=== PATIENT | male | born 1980 | race Caucasian/White ===

== ENCOUNTER 2016-06-03 22:43 | Emergency (ER) | payer OTHER ==
[2016-06-03 22:50] VITALS: BP 112/73; PULSE 80; TEMP 98.1; BMI 27.2
[2016-06-03] MEDS ORDERED: AZITHROMYCIN 250 MG TABLET (FP) PO ONE (22:55)
[2016-06-03] MEDS ORDERED: IBUPROFEN 600 MG TABLET (FP) PO ONE ×2 (22:55→22:57)
[2016-06-03] MEDS ORDERED: AZITHROMYCIN 250 MG TABLET (FP) ONE (22:57)
--- NOTE | 2016-06-03 22:58 | PDOC ---
History of Present Illness - General Chief Complaint: Ear Problem Stated Complaint: LT EAR PAIN Time Seen by Provider: 06/03/16 22:52 History Source: Patient Exam Limitations: No Limitations - History of Present Illness Initial Comments: 06/03/16 22:55 This is a 35-year-old male who comes in complaining of recent upper respiratory tract infection and now right ear pain. Patient denies any fevers or chills. Patient also complaining of a sore throat and some nasal congestion. Patient denies history of frequent ear infections. Patient said is otherwise healthy. PAST MEDICAL HISTORY: no significant history PAST SURGICAL HISTORY: no significant history FAMILY HISTORY: no pertinant history SOCIAL HISTORY: Pt lives with family and is employed. MEDICATIONS: reviewed ALLERGIES: As per nursing notes Review of Systems General: No fevers or chills, no weakness, no weight loss HEENT: No change in vision. No sore throat,. + ear pain CardioVascular: No chest pain or shortness of breath Respiratory:No cough, or wheezing. Gastrointestinal: no nausea, vomitting, diarrhea or constipation, No rectal bleeding Genitourinary: No dysuria, hematuria, or frequency Musculoskeletal: No joint or muscle pain or swelling Neurologic: No headache, vertigo, dizziness or loss of consciousness Psychiatric: nor depression Skin: No rashes or easy bruising Endocrine: no increased thirst or abnormal weight change Allergic: no skin or latex allergy All other systems reviewed and normal GENERAL: The patient is awake, alert, and fully oriented, in no acute distress. HEAD: Normal with no signs of trauma. 'EARS: Right tympanic membrane and ear is normal, left ear canal is normal, then tympanic membrane is dull, injected, bulging with pus behind the tympanic membrane. EYES: Pupils equal, round and reactive to light, extraocular movements intact, sclera anicteric, conjunctiva clear. EXTREMITIES: Normal range of motion, no edema. NEUROLOGICAL: Normal speech, normal gait. PSYCH: Normal mood, normal affect. SKIN: Warm, Dry, normal turgor, no rashes or lesions noted. Assessment and plan: This is a 35-year-old male who comes in complaining of left ear pain. Patient has a superlative left otitis media. Patient started on azithromycin and given first dose here. Patient told to get a decongestant and continue the antibiotics for 4 more days as prescribed. Patient was also given ibuprofen for pain and told he continue either Tylenol or ibuprofen for pain Past History - Past Medical History Allergies/Adverse Reactions: Allergies Allergy/AdvReac Type Severity Reaction Status Date / Time No Known Allergies Allergy Verified 01/13/13 18:18 Home Medications: Ambulatory Orders No Home Medications 0 dose .ROUTE UTDICT 02/23/13 Azithromycin 250 mg PO DAILY #4 tablet 06/03/16 Anemia: No Asthma: No Cancer: No Cardiac Disorders: No CVA: No COPD: No CHF: No Dementia: No Diabetes: No GI Disorders: No Disorders: No HTN: No Hypercholesterolemia: No Liver Disease: No Psychiatric Problems: Yes (ANXIETY) Seizures: No Thyroid Disease: No - Surgical History Abdominal Surgery: No Appendectomy: No Cardiac Surgery: No Cholecystectomy: No Lung Surgery: No Neurologic Surgery: No Orthopedic Surgery: No - Immunization History Immunization Up to Date: No - Psycho/Social/Smoking Cessation Hx Anxiety: Yes Suicidal Ideation: No Smoking History: Current some day smoker Have you smoked in the past 12 months: No Number of Cigarettes Smoked Daily: 0 If you are a former smoker, when did you quit?: 8 yrs ago Information on smoking cessation initiated: Yes Hx Alcohol Use: Yes Drug/Substance Use Hx: No Substance Use Type: Alcohol Hx Substance Use Treatment: No *Physical Exam - Vital Signs Last Vital Signs Temp Pulse Resp BP Pulse Ox 98.1 F 80 18 112/73 98 06/03/16 22:48 06/03/16 22:48 06/03/16 22:48 06/03/16 22:48 06/03/16 22:48 *DC/Admit/Observation/Transfer Diagnosis at time of Disposition: Otitis media Qualifiers: Otitis media type: suppurative Laterality: left Chronicity: acute Recurrence: not specified as recurrent Spontaneous tympanic membrane rupture: without spontaneous rupture Qualified Code(s): H66.002 - Acute suppurative otitis media without spontaneous rupture of ear drum, left ear - Discharge Dispostion Disposition: HOME Condition at time of disposition: Stable - Patient Instructions Printed Discharge Instructions: Middle Ear Infection Additional Instructions: For the pain you can take Tylenol or Motrin as needed. For the infection you're given a first dose here in the emergency room you need to take your next dose tomorrow evening. Take one dose a day for the next 4 days. Return to the emergency department immediately with ANY new, persistent or worsening symptoms. Continue any medications as previously prescribed by your physician. You should follow up with your primary doctor as soon as possible regarding today's emergency department visit. . Please make sure your doctor reviews the results of your emergency evaluation. Thank you for coming to the Emergency Department today for your care. It was a pleasure to see you today. Please note that your evaluation is INCOMPLETE until you follow-up with your doctor.
[2016-06-03] MEDS ORDERED: TOBRAMYCIN 0.3% OPHTH SOLN 5 ML BOTTLE ONE (23:05)
[2016-06-03] MEDS ORDERED: TOBRAMYCIN 0.3% OPHTH SOLN 5 ML BOTTLE OU ONE (23:09)
== END 2016-06-03 23:12 | disposition home or self-care (01) ==
LOC: FER 22:43
DX: H66.002 Acute suppurative otitis media without spontaneous rupture of ear drum, left ear (principal); F17.210 Nicotine dependence, cigarettes, uncomplicated; F41.9 Anxiety disorder, unspecified
CPT/HCPCS: 99281-25

== ENCOUNTER 2016-06-04 23:07 | Emergency (ER) | payer OTHER ==
[2016-06-04] MEDS ORDERED: KETOROLAC TROMETHAMINE 60 MG/2 ML VIAL IM ONE (23:20)
--- NOTE | 2016-06-04 23:22 | PDOC ---
History of Present Illness - General Chief Complaint: Ear Problem Stated Complaint: CONTINUED EAR PAIN History Source: Patient Exam Limitations: No Limitations - History of Present Illness Initial Comments: 06/04/16 23:24 This is a 35-year-old male who comes in complaining of the ear pain patient was in the emergency department last night and evaluated by me. Patient was started on azithromycin and told to go to the pharmacy and get a decongestant and take Tylenol or ibuprofen for the pain. Patient went to see his primary care doctor today who then switched him to amoxicillin. Patient did not take anything except for Tylenol for the pain and now comes in this evening complaining of pain. Patient denies any fevers or chills. PAST MEDICAL HISTORY: no significant history PAST SURGICAL HISTORY: no significant history FAMILY HISTORY: no pertinant history SOCIAL HISTORY: Pt lives with family and is employed. MEDICATIONS: reviewed ALLERGIES: As per nursing notes Review of Systems General: No fevers or chills, no weakness, no weight loss HEENT: No change in vision. No sore throat,. No ear pain CardioVascular: No chest pain or shortness of breath Respiratory:No cough, or wheezing. Gastrointestinal: no nausea, vomitting, diarrhea or constipation, No rectal bleeding Genitourinary: No dysuria, hematuria, or frequency Musculoskeletal: No joint or muscle pain or swelling Neurologic: No headache, vertigo, dizziness or loss of consciousness Psychiatric: nor depression Skin: No rashes or easy bruising Endocrine: no increased thirst or abnormal weight change Allergic: no skin or latex allergy All other systems reviewed and normal GENERAL: The patient is awake, alert, and fully oriented, in no acute distress. HEAD: Normal with no signs of trauma. EARS: There is erythema and dullness of the tympanic membrane with some fluid behind the tympanic membrane that appears to be pus. There is no tenderness of the posterior rectal area or mastoid process. Area. EYES: Pupils equal, round and reactive to light, extraocular movements intact, sclera anicteric, conjunctiva clear. EXTREMITIES: Normal range of motion, no edema. NEUROLOGICAL: Normal speech, normal gait. PSYCH: Normal mood, normal affect. SKIN: Warm, Dry, normal turgor, no rashes or lesions noted. Assessment and plan: This is a 35 her old male comes in complaining of left ear pain. Patient was seen here last night for the pain and started on antibiotics. Patient then went to see his primary care doctor and his antibiotics were switched to amoxicillin. Patient now returns again here for pain. Patient given Toradol and a prescription for Naprosyn was sent to the pharmacy. Past History - Past Medical History Allergies/Adverse Reactions: Allergies Allergy/AdvReac Type Severity Reaction Status Date / Time No Known Allergies Allergy Verified 01/13/13 18:18 Home Medications: Ambulatory Orders No Home Medications 0 dose .ROUTE UTDICT 02/23/13 Azithromycin 250 mg PO DAILY #4 tablet 06/03/16 Naproxen [Naprosyn -] 500 mg PO BID #14 tablet 06/04/16 Anemia: No Asthma: No Cancer: No Cardiac Disorders: No CVA: No COPD: No CHF: No Dementia: No Diabetes: No GI Disorders: No Disorders: No HTN: No Hypercholesterolemia: No Liver Disease: No Psychiatric Problems: Yes (ANXIETY) Seizures: No Thyroid Disease: No - Surgical History Abdominal Surgery: No Appendectomy: No Cardiac Surgery: No Cholecystectomy: No Lung Surgery: No Neurologic Surgery: No Orthopedic Surgery: No - Immunization History Immunization Up to Date: No - Psycho/Social/Smoking Cessation Hx Anxiety: Yes Suicidal Ideation: No Smoking History: Current some day smoker Have you smoked in the past 12 months: No Number of Cigarettes Smoked Daily: 0 If you are a former smoker, when did you quit?: 8 yrs ago 'Breaking Loose' booklet given: 06/03/16 Hx Alcohol Use: Yes Drug/Substance Use Hx: No Substance Use Type: Alcohol Hx Substance Use Treatment: No *DC/Admit/Observation/Transfer Diagnosis at time of Disposition: Otitis media Qualifiers: Otitis media type: suppurative Laterality: left Chronicity: acute Recurrence: not specified as recurrent Spontaneous tympanic membrane rupture: without spontaneous rupture Qualified Code(s): H66.002 - Acute suppurative otitis media without spontaneous rupture of ear drum, left ear - Discharge Dispostion Disposition: HOME Condition at time of disposition: Stable Admit: No - Prescriptions Prescriptions: Naproxen [Naprosyn -] 500 mg PO BID #14 tablet - Patient Instructions Additional Instructions: Continue your antibiotics as prescribed. Get the prescription filled for Naprosyn that I sent to the pharmacy and take one tablet twice a day as needed. In addition to the Naprosyn if he needs something more for pain you can also take acetaminophen as spent 2 tablets every 4-6 hours. Return to the emergency department immediately with ANY new, persistent or worsening symptoms. Continue any medications as previously prescribed by your physician. You should follow up with your primary doctor as soon as possible regarding today's emergency department visit. . Please make sure your doctor reviews the results of your emergency evaluation. Thank you for coming to the Emergency Department today for your care. It was a pleasure to see you today. Please note that your evaluation is INCOMPLETE until you follow-up with your doctor.
[2016-06-04 23:28] VITALS: BP 145/97; PULSE 78; TEMP 98.4; BMI 26.9
== END 2016-06-04 23:50 | disposition home or self-care (01) ==
LOC: FER 23:07
PROC: 3E0233Z Introduction of Anti-inflammatory into Muscle, Percutaneous Approach (ICD-10-PCS; principal; 2016-06-04)
DX: H66.002 Acute suppurative otitis media without spontaneous rupture of ear drum, left ear (principal); F17.210 Nicotine dependence, cigarettes, uncomplicated; F41.9 Anxiety disorder, unspecified
CPT/HCPCS: 96372; 99281-25

== ENCOUNTER 2018-03-22 10:32 | Emergency (ER) | payer OTHER ==
[2018-03-22 10:58] VITALS: BP 122/79; PULSE 71; TEMP 98.3; BMI 26.5
--- NOTE | 2018-03-22 11:35 | PDOC ---
History of Present Illness - General Chief Complaint: Psychiatric Stated Complaint: ANXIETY Time Seen by Provider: 03/22/18 10:41 History Source: Patient Exam Limitations: No Limitations - History of Present Illness Initial Comments: 03/22/18 11:39 Mr Tomas presents to the ER with a complaint of feeling uneasy when he awoke this morning and feeling As the day progressed he became nauseous and dizzy He reports chest tightness He has had these symptoms in the past and in fact has had multiple ER visits for the same (work up reportedly negative) No recent upper respiratory infections No fevers or chills PMH: denies PSH: denies Meds: denies ALL: NKDA Social: (+) tobacco use, denies drug or marijuana use FH: no h/o sudden My Review of Systems GENERAL/CONSTITUTIONAL: No: fever, chills, weakness, loss of appetite. HEAD, EYES, EARS, NOSE AND THROAT: No: change in vision, ear pain, discharge, sore throat, throat swelling. CARDIOVASCULAR: No: chest pain, lightheadedness, palpitations, syncope RESPIRATORY: No: cough, shortness of breath, wheezing, hemoptysis, stridor. GASTROINTESTINAL: No: nausea, vomiting, abdominal cramping, diarrhea, rectal bleeding, constipation. GENITOURINARY: No: dysuria, hematuria, frequency, urgency, flank pain. MUSCULOSKELETAL: No: back pain, neck pain, joint pain, muscle swelling or pain SKIN AND BREASTS: No: lesions, pallor, rash or easy bruising. NEUROLOGIC: No: headache, vertigo, paresthesias, weakness ENDOCRINE: No: unexplained weight gain or loss HEMATOLOGIC/LYMPHATIC: No: anemia, easy bleeding, swelling nodes My Normal Exam GENERAL: The patient is in no acute distress. HEAD: Normal with no signs of trauma. EYES: PERRLA, EOMI, sclera anicteric, conjunctiva clear. ENT: Ears normal, nares patent, oropharynx clear without exudates. Moist mucous membranes. NECK: Normal range of motion, supple without lymphadenopathy, JVD, or masses. LUNGS: Breath sounds equal, clear to auscultation bilaterally. No wheezes, and no crackles. HEART:Regular rate and rhythm, normal S1 and S2 without murmur, rub or gallop. ABDOMEN: Soft, nontender, normoactive bowel sounds. No guarding, no rebound. EXTREMITIES: Normal range of motion, no edema. No clubbing or cyanosis. No erythema, or tenderness. NEUROLOGICAL: Cranial nerves II through XII grossly intact. Normal speech. No focal neurological deficits. MUSCULOSKELETAL: Back non-tender to palpation, no CVA tenderness SKIN: Warm, Dry, normal turgor, no rashes or lesions noted. Past History - Past Medical History Allergies/Adverse Reactions: Allergies Allergy/AdvReac Type Severity Reaction Status Date / Time No Known Allergies Allergy Verified 03/22/18 10:33 Home Medications: Ambulatory Orders NK [No Known Home Medication] 03/22/18 Anemia: No Asthma: No Cancer: No Cardiac Disorders: No CVA: No COPD: No CHF: No Dementia: No Diabetes: No GI Disorders: No Disorders: No HTN: No Hypercholesterolemia: No Liver Disease: No Psychiatric Problems: Yes (ANXIETY) Seizures: No Thyroid Disease: No - Surgical History Abdominal Surgery: No Appendectomy: No Cardiac Surgery: No Cholecystectomy: No Lung Surgery: No Neurologic Surgery: No Orthopedic Surgery: No - Immunization History Immunization Up to Date: No - Suicide/Smoking/Psychosocial Hx Smoking History: Never smoked Have you smoked in the past 12 months: No Number of Cigarettes Smoked Daily: 0 If you are a former smoker, when did you quit?: 8 yrs ago Information on smoking cessation initiated: No 'Breaking Loose' booklet given: 06/03/16 Hx Alcohol Use: No Drug/Substance Use Hx: No Substance Use Type: Alcohol Hx Substance Use Treatment: No *Physical Exam - Vital Signs Last Vital Signs Temp Pulse Resp BP Pulse Ox 98.3 F 71 20 122/79 98 03/22/18 10:32 03/22/18 10:32 03/22/18 10:32 03/22/18 10:32 03/22/18 10:32 Moderate Sedation - Procedure Monitoring Vital Signs: Procedure Monitoring Vital Signs Temperature 98.3 F 03/22/18 10:32 Pulse Rate 71 03/22/18 10:32 Respiratory Rate 20 03/22/18 10:32 Blood Pressure 122/79 03/22/18 10:32 O2 Sat by Pulse Oximetry (%) 98 03/22/18 10:32 Medical Decision Making - Medical Decision Making 03/23/18 10:24 PT refusing EKG CXR nml Pt will follow up with Cardiology *DC/Admit/Observation/Transfer Diagnosis at time of Disposition: Chest tightness - Discharge Dispostion Disposition: HOME Condition at time of disposition: Stable Decision to Admit order: No - Referrals Referrals: Mannie Whyte MD [Staff Physician] - Nabeel Oliveira MD [Staff Physician] - - Patient Instructions Printed Discharge Instructions: DI for Atypical Chest Pain Additional Instructions: Thank you for coming in to the ER today Please be sure to follow up with your primary care physician Return to the ER for any other concerns or complaints - Post Discharge Activity
== END 2018-03-22 12:25 | disposition home or self-care (01) ==
LOC: FER 10:32
DX: R07.89 Other chest pain (principal); F41.9 Anxiety disorder, unspecified
CPT/HCPCS: 71046-TC-FY; 99282-25

== ENCOUNTER 2019-08-17 07:23 | Emergency (ER) | payer BC, OTHER ==
[2019-08-17] MEDS ORDERED: KETOROLAC TROMETHAMINE 30 MG/1 ML VIAL IM ONE (07:50)
--- NOTE | 2019-08-17 07:51 | PDOC ---
History of Present Illness - General Chief Complaint: Pain Stated Complaint: RT KNEE PAIN Time Seen by Provider: 08/17/19 07:27 History Source: Patient Exam Limitations: No Limitations - History of Present Illness Initial Comments: 08/17/19 07:47 38-year-old male no past medical history status post right meniscal surgery on the right knee here today complaining of knee pain in the posterior knee region radiating down to his upper calf. Patient states he is postop day 2 did ice it yesterday however has not not been elevating it did not take anything for pain felt the pain was going down to his calf he got concerned. This morning he also noticed that he felt like he may be feeling short of breath denies any chest pain no history of PE or DVT no cough no fever no other current complaints Past History - Medical History Allergies/Adverse Reactions: Allergies Allergy/AdvReac Type Severity Reaction Status Date / Time No Known Allergies Allergy Verified 03/22/18 10:33 Home Medications: Ambulatory Orders NK [No Known Home Medication] 03/22/18 Anemia: No Asthma: No Cancer: No Cardiac Disorders: No CVA: No COPD: No CHF: No Dementia: No Diabetes: No GI Disorders: No Disorders: No HTN: No Hypercholesterolemia: No Liver Disease: No Psychiatric Problems: Yes (ANXIETY) Seizures: No Thyroid Disease: No - Surgical History Abdominal Surgery: No Appendectomy: No Cardiac Surgery: No Cholecystectomy: No Lung Surgery: No Neurologic Surgery: No Orthopedic Surgery: No - Immunization History Immunization Up to Date: No - Psycho-Social/Smoking History Smoking History: Never smoked Have you smoked in the past 12 months: No Number of Cigarettes Smoked Daily: 0 If you are a former smoker, when did you quit?: 8 yrs ago 'Breaking Loose' booklet given: 06/03/16 Review of Systems - Review of Systems Constitutional: No: Chills, Diaphoresis, Fever HEENTM: No: Eye Pain Respiratory: Yes: Shortness of Breath. No: Cough Cardiac (ROS): No: Chest Pain, Edema : No: Burning, Dysuria, Discharge Integumentary: No: Bruising, Change in Color All Other Systems: Reviewed and Negative *Physical Exam - Physical Exam 08/17/19 07:49 Awake alert no acute distress lungs are clear bilaterally heart is regular 30 murmurs rubs or gallops abdomen soft nontender extremities are warm and perfused the right knee shows minimal postop swelling there is no noted erythema or warmth distally neurovascularly intact Medical Decision Making - Medical Decision Making 08/17/19 07:50 38-year-old postop day 2 status post right meniscal surgery with pain and swelling in the calf. On my exam no noted swelling is appreciated. There is appropriate postop knee swelling however the calf does not appear swollen red or warm. Will obtain a Doppler of the right lower extremity to rule out DVT and pain control recommended for the patient to elevate and ice his leg to reduce swelling and pain. Focused DVT ultrasound was performed of the right leg full compression at all si ashli no visualized DVT recommend follow-up in 5 to 7 days for persistent symptoms Discharge - Discharge Information Problems reviewed: Yes Clinical Impression/Diagnosis: Post-op pain Condition: Improved Disposition: HOME - Admission No - Follow up/Referral - Patient Discharge Instructions Patient Printed Discharge Instructions: Meniscectomy Additional Instructions: He should follow-up with your orthopedic surgeon. You should continue to elevate your leg and ice it to reduce swelling as swelling will contribute to your pain. For your pain you can take Motrin 400 mg every 8 hours as needed. You did have an ultrasound of your right leg today to rule out a blood clot which is normal or negative. Should you have persistent pain or symptoms you may seek a repeat ultrasound in 5 to 7 days return for any problems or concerns - Post Discharge Activity
[2019-08-17 07:55] VITALS: BP 131/81; PULSE 79; TEMP 98.4; BMI 29.5
[2019-08-17] MEDS ORDERED: KETOROLAC TROMETHAMINE 30 MG/1 ML VIAL ONE (08:03)
== END 2019-08-17 08:19 | disposition home or self-care (01) ==
LOC: FER 07:23
PROC: 3E023GC Introduction of Other Therapeutic Substance into Muscle, Percutaneous Approach (ICD-10-PCS; principal; 2019-08-17)
DX: M25.561 Pain in right knee (principal); G89.18 Other acute postprocedural pain
CPT/HCPCS: 93971-RT; 99284-25